=== PATIENT | female | born 1995 ===

== ENCOUNTER 2022-01-31 19:01 | Inpatient (IN) | payer OTHER ==
[2022-01-31 20:44] LABS: BILIRUBIN NEGATIVE (NEGATIVE); BLOOD NEGATIVE Ery/uL (NEGATIVE); CLARITY CLEAR (CLEAR); COLOR YELLOW (YELLOW); GLUCOSE (U) NORMAL (NORMAL); LEUKOCYTES NEGATIVE Leu/uL (NEGATIVE); NITRITE NEGATIVE (NEGATIVE); PROTEIN NEGATIVE (NEGATIVE); UROBILINOGEN 0.2 mg/dL (0.2-1.0); pH 7.5 (5.0-9.0)
[2022-01-31 20:47] LABS: AMPHETAMINES NEGATIVE (NEGATIVE); BARBITURATES NEGATIVE (NEGATIVE); ECSTASY (MDMA) NEGATIVE (NEGATIVE); MARIJUANA (THC) NEGATIVE (NEGATIVE); METHADONE NEGATIVE (NEGATIVE); OPIATES NEGATIVE (NEGATIVE); OXYCODONE NEGATIVE (NEGATIVE)
[2022-01-31 21:42] LABS: HCT 37.7 % (37.0-47.0); HGB 13.3 g/dl (12.5-16.0); MCH 31.7 pg (25.0-31.0); MCHC 35.3 g/dL (32.0-36.0); MPV 9.3 fL (6.0-9.5); RBC 4.19 M/uL (4.20-5.40); RDW 12.3 % (11.5-14.0); WBC 10.8 K/uL (4.0-10.5)
[2022-02-03 06:25] LABS: HCT 29.1 % (37.0-47.0); HGB 9.9 g/dl (12.5-16.0); MCH 31.4 pg (25.0-31.0); MCV 92.4 fL (78.0-100.0); MPV 9.2 fL (6.0-9.5); RBC 3.15 M/uL (4.20-5.40); RDW 12.6 % (11.5-14.0); WBC 15.3 K/uL (4.0-10.5)
== END 2022-02-04 12:16 | disposition home or self-care (01) | DRG 806 ==
LOC: FOB 19:01 → FOD 19:01 → FOB 21:10
PROVIDERS: ADMIT Specialist
PROC: 10E0XZZ Delivery of Products of Conception, External Approach (ICD-10-PCS; principal; 2022-02-02)
PROC: 0UQMXZZ Repair Vulva, External Approach (ICD-10-PCS; 2022-02-02)
PROC: 3E0DXGC Introduction of Other Therapeutic Substance into Mouth and Pharynx, External Approach (ICD-10-PCS; 2022-02-02)
PROC: 3E0134Z Introduction of Serum, Toxoid and Vaccine into Subcutaneous Tissue, Percutaneous Approach (ICD-10-PCS; 2022-02-04)
DX: O99.892 Other specified diseases and conditions complicating childbirth (principal); D62 Acute posthemorrhagic anemia; Z37.0 Single live birth; O99.02 Anemia complicating childbirth; O99.824 Streptococcus B carrier state complicating childbirth; R82.71 Bacteriuria; Z3A.39 39 weeks gestation of pregnancy; Z23 Encounter for immunization
CPT/HCPCS: 36415; 80305; 81003; 86850; 86900; 86901; J2540; J2916; J7120